=== PATIENT | male | born 1980 | race Caucasian/White ===

== ENCOUNTER 2016-04-27 09:49 | Emergency (ER) | payer OTHER ==
[~2016-04-27] VITALS: Ht 170.2 cm; Wt 109.7 kg
[~2016-04-27 09:49] MED LIST: ASPIR-LOW81 MG PO; NOHOMEMEDS; ULTRAM50 MG PO
[2016-04-27 10:35] LABS: HEMATOCRIT 44.6 % (38.0-50.0); MCH 31.3 PG (29.0-34.0); MCHC 34.1 G/DL (30.0-36.0); MEAN PLAT.VOLUME 9.8 uM^3 (9.0-12.4); PLATELET COUNT 342 K/uL (156-360); RBC DIS.WIDTH-CV 12.7 % (11.8-14.6); RBC DIS.WIDTH-SD 42.6 % (39-53); RED BLOOD COUNT 4.85 M/uL (4.00-5.50); WHITE BLOOD COUNT 6.3 K/uL (4.1-10.2)
[2016-04-27 10:43] LABS: ADD MIUA? YES; BILIRUBIN NEGATIVE; BLOOD SMALL; COLOR YELLOW ((YELLOW)); GLUCOSE (STRIP) NEGATIVE; KETONES NEGATIVE; LEUKOCYTES NEGATIVE; NITRITE NEGATIVE; PROTEIN (STRIP) 30; SPECIFIC GRAVITY 1.028 (1.000-1.030); UROBILINOGEN 0.2 MG/DL (0.2-1.0)
[2016-04-27 10:46] LABS: CHLORIDE 106 mEq/L (99-109); POTASSIUM 3.6 mEq/L (3.7-5.4); SODIUM 140 mEq/L (136-147)
[2016-04-27 10:48] LABS: GLUCOSE 105 mg/dL (70-99)
[2016-04-27 10:50] LABS: ANION GAP 9 MEQ/L (2-14); TOTAL BILIRUBIN 0.7 mg/dL (0.0-1.0)
[2016-04-27 10:52] LABS: ALKALINE PHOSPHATASE 50 IU/L (3-129); GFR ESTIMATE (CALCULATED) 56 mL/min/
[2016-04-27 10:52] LABS: BACTERIA NONE SEEN /HPF; EPITHELIAL CELLS NONE SEEN /HPF; HYALINE CASTS 0-5 /LPF; MUCUS 4+ /LPF; RED BLOOD CELLS 0-5 /HPF (0-5); UCUL ADDED? NO; WHITE BLOOD CELLS 0-5 /HPF (0-5)
[2016-04-27 10:53] LABS: UREA NITROGEN (BUN) 12 mg/dL (9-23)
[2016-04-27 10:54] LABS: DIRECT BILIRUBIN 0.2 mg/dL (0.0-0.3)
[2016-04-27 10:55] LABS: LIPASE 38 U/L (1.0-51.0)
[2016-04-27] MEDS ORDERED: ZOFRAN4 MG PO (11:11)
[2016-04-27] MEDS ORDERED: PERCOCET 5/31 TABLET PO (11:11)
[2016-04-27 11:28] VITALS: BP 120/75
== END 2016-04-27 11:28 | disposition home or self-care (01) ==
LOC: EME 09:49
PROVIDERS: Emergency Medicine
DX: K52.9 Noninfective gastroenteritis and colitis, unspecified (principal); I88.0 Nonspecific mesenteric lymphadenitis; F17.200 Nicotine dependence, unspecified, uncomplicated
CPT/HCPCS: 74176; 80048; 80076; 81003; 83690; 85027; 99281; 99284